=== PATIENT | female | born 1980 | race Caucasian/White ===

== ENCOUNTER 2016-05-26 11:56 | Emergency (ER) | payer OTHER ==
[~2016-05-26] VITALS: Ht 167.6 cm; Wt 104.8 kg
[~2016-05-26 11:56] MED LIST: NOHOMEMEDS
[2016-05-26 12:53] LABS: MCH 30.1 PG (29.0-34.0); MCHC 32.1 G/DL (30.0-36.0); MCV 93.9 FL (83-99); MEAN PLAT.VOLUME 9.3 uM^3 (9.5-12.4); PLATELET COUNT 385 K/uL (156-360); RBC DIS.WIDTH-CV 11.7 % (11.8-14.6); RBC DIS.WIDTH-SD 40.6 % (39-53); RED BLOOD COUNT 5.11 M/uL (3.80-5.20); WHITE BLOOD COUNT 12.8 K/uL (4.1-10.2)
[2016-05-26 13:50] LABS: COLOR BLOODY ((YELLOW)); SPECIFIC GRAVITY 1.025 (1.000-1.030)
[2016-05-26 13:51] LABS: BILIRUBIN NEGATIVE; BLOOD LARGE; GLUCOSE (STRIP) NEGATIVE; KETONES NEGATIVE; PROTEIN (STRIP) 30; UROBILINOGEN 0.2 MG/DL (0.2-1.0)
[2016-05-26 14:05] LABS: ADD MIUA? YES
[2016-05-26 14:08] LABS: EPITHELIAL CELLS NONE SEEN /HPF; RED BLOOD CELLS TNTC /HPF (0-5); WHITE BLOOD CELLS RARE /HPF (0-5)
[2016-05-26 14:09] LABS: BACTERIA RARE /HPF; CASTS NONE SEEN /LPF; CRYSTALS NONE SEEN; MUCUS NONE SEEN /LPF; UCUL ADDED? NO
[2016-05-26 14:10] LABS: LEUKOCYTES NEGATIVE
[2016-05-26 16:10] VITALS: BP 140/89
== END 2016-05-26 16:11 | disposition home or self-care (01) ==
LOC: EME 11:56
DX: O20.0 Threatened abortion (principal); Z3A.01 Less than 8 weeks gestation of pregnancy; Z87.891 Personal history of nicotine dependence
CPT/HCPCS: 76801; 81003; 84702; 85027; 86900; 86901; 99281; 99284

== ENCOUNTER 2016-06-08 06:00 | Day surgery (SDC) | payer OTHER ==
[~2016-06-08] VITALS: Ht 167.6 cm; Wt 103.5 kg
[~2016-06-08 06:00] MED LIST changes: +ADDERALL XR 2525 MG PO; +EFFEXOR25 MG PO; +KLONOPIN0.5 M1 PO
[2016-06-08 06:53] LABS: HEMATOCRIT 40.7 % (36.0-46.0); MCH 30.3 PG (29.0-34.0); MCHC 32.2 G/DL (30.0-36.0); MCV 94.2 FL (83-99); MEAN PLAT.VOLUME 9.7 uM^3 (9.5-12.4); PLATELET COUNT 349 K/uL (156-360); RBC DIS.WIDTH-CV 11.6 % (11.8-14.6); RBC DIS.WIDTH-SD 39.9 % (39-53); RED BLOOD COUNT 4.32 M/uL (3.80-5.20); WHITE BLOOD COUNT 10.5 K/uL (4.1-10.2)
[2016-06-08] MEDS ORDERED: DOXYCYCLINE MO100 M1 PO (08:25)
[2016-06-08] MEDS ORDERED: IBUPROFEN800 MG PO (08:25)
[2016-06-08 09:20] VITALS: BP 98/60
[2016-06-08 10:10] VITALS: BP 123/65
== END 2016-06-08 10:25 | disposition home or self-care (01) ==
LOC: SDC 06:00
PROVIDERS: Obstetrics & Gynecology
PROC: 10D17ZZ Extraction of Products of Conception, Retained, Via Natural or Artificial Opening (ICD-10-PCS; principal; 2016-06-08)
DX: O03.4 Incomplete spontaneous abortion without complication (principal); Z3A.08 8 weeks gestation of pregnancy; F17.200 Nicotine dependence, unspecified, uncomplicated; O24.419 Gestational diabetes mellitus in pregnancy, unspecified control; O99.331 Smoking (tobacco) complicating pregnancy, first trimester
CPT/HCPCS: 85027; 86850; 86900; 86901; 88305; 94640; J1885; J2250; J3010